=== PATIENT | male | born 1970 | race Caucasian/White ===

== ENCOUNTER 2019-02-20 06:00 | Emergency (ER) | payer OTHER ==
--- OUTSIDE RECORDS SUMMARY | 2019-02-20 06:11 | XMS REPORT | Continuity of Care Document ---
:1970 External Reference #:[id number] Author Name José Miguel Emmanuel M.D. (transmitted by agent of provider Mariely Cruz) Address [address] [place] [id number] Care Team Providers Name Role Phone [facility] - Care Team Information Beauty Culture Teacher Mental Health Carolin Ho M.D. - Family Medicine Care Team Information Beauty Culture Teacher [phone] Problems Active Problems Provider Date Insomnia Nathan Goodman M.D.,FACP Onset: 03/24/2017 Opioid abuse Nathan Goodman M.D.,FACP Onset: 03/24/2017 Mixed hyperlipidemia Nathan Goodman M.D.,FACP Onset: 03/24/2017 Moderate cigarette smoker (10- Nahtan Goodman M.D.,FACP Onset: 2017 cigs/day) Anxiety disorder Nathan Goodman M.D.,FACP Onset: 10/12/2017 Social History Type Date Description Comments Sex Unknown Tobacco Use Start: Unknown current cigarette smoker Smoking Status Reviewed: 02/05/19 current cigarette smoker ETOH Use 03/30/2018 Denies alcohol use Tobacco Use Start: Unknown Patient is a current 1/2-3/4 ppd X 30 smoker, smokes every day years Recreational Drug Use Denies Drug Use Allergies, Adverse Reactions, Alerts Description No Known Drug Allergies Medications Active Medications SIG Qnty Indications Ordering Provider Date Trazodone HCL 1-2 tab every 60tabs Nathan Rubi 06/09/2018 50mg night at bedtime Paco Goodman,FACP Tablets as needed Naproxen 1 by mouth twice 60tabs Nathan Rubi 11/21/2017 500mg Tablets a day as needed Paco Goodman,FACP Buprenorphine place one tablet 56tabs Nathan Rubi 03/24/2017 HCL-Naloxone HCL under the tongue Paco Goodman,FACP 8-2mg twice a day; Tablets Sub maximum daily dose = 2 Sudafed Congestion 1 by mouth twice Unknown 30mg a day Tablets Clonazepam Take One Tablet Unknown 0.5mg Tablets By Mouth Twice A Day Max 2/Day Medications Administered in Office Medication SIG Qnty Indications Ordering Provider Date Records Fee Katie Ocampo M.D. 11/09/2018 Injection Records Fee José Miguel Emmanuel M.D. 09/25/2018 Injection Triamcinolone (Kenalog) SUJATA Ramirez 09/04/2018 Injection Depomedrol 40MG José Miguel Emmanuel M.D. 01/23/2018 Injection Immunizations CPT Code Status Date Vaccine Reaction Lot # [id number] Given 02/20/2018 Influenza Virus Vaccine, no immediate reaction [id number] Quadrivalent, Split, noted Preservative Free 42554 Given 06/24/2015 Pneumonia Vaccine [id number] Vital Signs Date Vital Result Comment 02/05/2019 8:48am Height 73 inches 6'1" Weight 165.00 lb Heart Rate 63 /min BP Systolic 110 mmHg BP Diastolic 64 mmHg Respiratory Rate 16 /min Body Temperature 96.9 F Pain Level 3 BMI (Body Mass Index) 21.8 kg/m2 01/22/2019 9:31am Height 72 inches 6'0" Weight 165.00 lb Heart Rate 70 /min BP Systolic 100 mmHg BP Diastolic 68 mmHg Respiratory Rate 18 /min Body Temperature 96.8 F Pain Level 4 BMI (Body Mass Index) 22.4 kg/m2 Results Description No Information Available Procedures Date Code Description Status 09/04/2018 Inject/Drain Joint/Bursa Major W/O US Completed 09/04/2018 Inject/Drain Joint/Bursa Major W/O US Completed Medical Devices Description No Information Available Encounters Type Date Location Provider Dx Diagnosis Office Visit 12/25/2018 [facility] José Miguel Emmanuel M.D. M25.561 Pain in right 1:45p at [place] knee M23.8x1 Other internal derangements of right knee M17.11 Unilateral primary osteoarthritis, right knee Assessments Date Code Description Provider 01/22/2019 M16.11 Unilateral primary osteoarthritis, right hip José Miguel Emmanuel M.D. 01/22/2019 M17.11 Unilateral primary osteoarthritis, right knee José Miguel Emmanuel M.D. 12/25/2018 M25.561 Pain in right knee José Miguel Emmanuel M.D. 12/25/2018 M23.8x1 Other internal derangements of right knee José Miguel Emmanuel M.D. 12/25/2018 M17.11 Unilateral primary osteoarthritis, right knee José Miguel Emmanuel M.D. 09/04/2018 M17.11 Unilateral primary osteoarthritis, right knee Magdalena Arreola RPA-Olena 09/04/2018 M17.11 Unilateral primary osteoarthritis, right knee José Miguel Emmanuel M.D. 09/04/2018 M25.461 Effusion, right knee José Miguel Emmanuel M.D. Plan of Treatment No Information Available Functional Status Description No Information Available Mental Status Description No Information Available Referrals Description No Information Available
--- OUTSIDE RECORDS SUMMARY | 2019-02-20 06:11 | XMS REPORT | Continuity of Care Document ---
:1970 External Reference #:[id number] Author Name José Miguel Emmanuel M.D. (transmitted by agent of provider Farnaz Cunha) Address [address] [place] [id number] Care Team Providers Name Role Phone [facility] - Care Team Information Lab Support Service Tech [phone] Mental Health Carolin Ho M.D. - Family Medicine Care Team Information Lab Support Service Tech Problems Active Problems Provider Date Insomnia Nathan Goodman M.D.,FACP Onset: 03/24/2017 Opioid abuse Nathan Goodman M.D.,FACP Onset: 03/24/2017 Mixed hyperlipidemia Nathan Goodman M.D.,FACP Onset: 03/24/2017 Moderate cigarette smoker (10-19 Nathan Goodman M.D.,FACP Onset: 2017 cigs/day) Anxiety disorder Nathan Goodman M.D.,FACP Onset: 10/12/2017 Social History Type Date Description Comments Sex Unknown Tobacco Use Start: Unknown current cigarette smoker Smoking Status Reviewed: 12/25/18 current cigarette smoker ETOH Use 03/30/2018 Denies [...] Code Status Date Vaccine Reaction Lot # [id number] Given 02/20/2018 Influenza Virus Vaccine, no immediate reaction [id number] Quadrivalent, Split, noted Preservative Free 33669 Given 06/24/2015 Pneumonia Vaccine [id number] Vital Signs Date Vital Result Comment 12/25/2018 1:45pm Height 72 inches 6'0" Weight 160.00 lb Heart Rate 64 /min BP Systolic 120 mmHg BP Diastolic 66 mmHg Respiratory Rate 14 /min Pain Level 7 BMI (Body Mass Index) 21.7 kg/m2 09/04/2018 2:49pm Height 72 inches 6'0" Weight 168.25 lb Heart Rate 74 /min BP Systolic 120 mmHg BP Diastolic 72 mmHg Body Temperature 97.9 F Pain Level 3 BMI (Body Mass Index) 22.8 kg/m2 Results Description No Information Available Procedures Date Code Description Status 09/04/201846439 Inject/Drain Joint/Bursa Major W/O US Completed 09/04/2018 Inject/Drain Joint/Bursa Major W/O US Completed Medical Devices Description No Information Available Encounters Description No Information Available Assessments Date Code Description Provider 12/25/2018 S83.231D Complex tear of medial meniscus, current José Miguel Emmanuel M.D. injury, right knee, subsequent encounter 12/25/2018 M17.11 Unilateral primary osteoarthritis, right knee José Miguel Emmanuel M.D. 09/04/2018 M17.11 Unilateral primary osteoarthritis, right knee Magdalena Arreola , IMELDA-C 09/04/2018 M17.11 Unilateral primary osteoarthritis, right knee José Miguel Emmanuel M.D. 09/04/2018 M25.461 Effusion, right knee José Miguel Emmanuel M.D. Plan of Treatment 12/25/2018 - José Miguel Emmanuel M.D.S83.231D Complex tear of medial meniscus, current injury, right knee, subsequent encounterNew Xrays:MRI Knee Right W/O, Ordered: 12/25/18Follow up:Follow up: O/V after MRI right kneeM17.11 Unilateral primary osteoarthritis, right knee Functional Status Description No Information Available Mental Status Description No Information Available Referrals Description No Information Available
--- NOTE | 2019-02-20 06:39 | ED ---
Laceration/Wound HPI - HPI Summary HPI Summary: 48 y/o right handed male presents to the ED today with 2 lacerations to his left forearm. A 3.5 cm laceration to his left lateral forearm and a superficial 3.5cm laceration to the proximal posterior left forearm. He states that this occurred at 2230 on 02/19/19 when he tripped in his garage and put his hand through a glass window pane in his garage. Pt states there was minimal bleeding and thus decided not to come into the ED until this morning. Pt reports minimal pain at this time and has not taken anything for pain before presenting to the ED. Pt has full ROM and is neurovascularly intact. Hemostasis is achieved at this time. Pt states his last Tdap was within 5 years. - History of Current Complaint Stated Complaint: ARM LAC PER PT Time Seen by Provider: 02/20/19 06:35 Hx Obtained From: Patient Mechanism of Injury: Sharp/Blunt Trauma Onset/Duration: Sudden Onset Aggravating: Movement Alleviating: Nothing Timing: Constant Onset Severity: Mild Current Severity: None Pain Intensity: 7 Pain Scale Used: 0-10 Numeric Associated Signs & Symptoms: Negative Related Hx: Dominant Hand (Right) - Allergy/Home Medications Allergies/Adverse Reactions: Allergies Allergy/AdvReac Type Severity Reaction Status Date / Time No Known Allergies Allergy Verified 02/20/19 06:03 PMH/Surg Hx/FS Hx/Imm Hx Endocrine/Hematology History: Denies: Hx Anticoagulant Therapy, Hx Diabetes Cardiovascular History: Denies: Hx Hypertension, Hx Pacemaker/ICD History: Denies: Hx Renal Disease Sensory History: Denies: Hx Hearing Aid Psychiatric History: Denies: Hx Panic Disorder, Hx Substance Abuse - Surgical History Surgery Procedure, Year, and Place: Appendectomy as a 4-yr old;. R knee surgery 2010; - Immunization History Date of Tetanus Vaccine: Within 5 years Infectious Disease History: No Infectious Disease History: Reports: Hx Hepatitis - pt states he MAY have hepatitis hx, Hx Shingles Denies: Traveled Outside the [place] in Last 30 Days - Social History Lives: With Family - Mother Alcohol Use: None Substance Use Type: Reports: None Hx Tobacco Use: Yes Smoking Status (MU): Current Every Day Smoker Review of Systems Constitutional: Negative Cardiovascular: Negative Respiratory: Negative Gastrointestinal: Negative Musculoskeletal: Negative Positive: Other - 2 lacteration to the left forearm Neurological: Negative All Other Systems Reviewed And Are Negative: Yes Physical Exam Triage Information Reviewed: Yes Vital Signs On Initial Exam: Initial Vitals Temp Pulse Resp BP Pulse Ox 98.4 F 67 15 120/75 97 02/20/19 06:01 02/20/19 06:01 02/20/19 06:01 02/20/19 06:01 02/20/19 06:01 Vital Signs Reviewed: Yes Appearance: Positive: Well-Appearing, Well-Nourished Skin: Positive: Warm, Skin Color Reflects Adequate Perfusion Head/Face: Positive: Normal Head/Face Inspection Eyes: Positive: Normal, EOMI, CARA, Conjunctiva Clear ENT: Positive: Hearing grossly normal Respiratory/Lung Sounds: Positive: Breath Sounds Present Cardiovascular: Positive: Normal Musculoskeletal: Positive: Normal, Strength/ROM Intact Neurological: Positive: Sensory/Motor Intact Psychiatric: Positive: Normal, Affect/Mood Appropriate AVPU Assessment: Alert Procedures - Sedation Patient Received Moderate/Deep Sedation with Procedure: No Diagnostics - Vital Signs Vital Signs Temp Pulse Resp BP Pulse Ox 02/20/19 06:01 98.4 F 67 15 120/75 97 - Laboratory Lab Statement: Any lab studies that have been ordered have been reviewed, and results considered in the medical decision making process. Laceration Repair Course/Dx - Course Course Of Treatment: Pt was evaluated for 2 lacerations to the left forearm. A 3.5cm lacteration was anesthetised with 5ml of 1% lidocain w/o epi. Wounds were irrigated with 500CC of normal saline. 6 simple interuppted surutres were used to approximate the laceration of the lateral mid forearm using 4-0 nylon. Dermabond and steri strips were used for approximation of the superficial 3.5 cm laceration to the proximal posterior left forearm. Pt tetnus is up to date. Pt tolerated the procedure well. Hemostasis acheived. Pt discharged home with dressing clean and inplace. Pt will return to this ED or his PCP for suture removal in 8-10 days. - Differential Dx Differental Diagnoses: Laceration - Clinical Impression Provider Diagnoses: Laceration of left forearm Discharge ED - Sign-Out/Discharge Documenting (check all that apply): Patient Departure - Discharge Plan Condition: Stable Disposition: HOME Patient Education Materials: Care For Your Stitches (ED), Laceration (ED) Referrals: Storm,Shawnti R, CLOTH BOOKER [Primary Care Provider] - Additional Instructions: Return to your PCP or this ED in 8-10 days for removal of your sutures. Keep your dressing dry and intact for 24 hours, then you may remove and clean it with soap and warm water. Gently run the water over the wound, do not scrub. Once clean gently pat wound dry and redress. Your steri strips and dermabond glue will fall off when they are ready to. Resume your normal activity as tolerated. For any worsening or changing symptoms return to this ED immediately. - Billing Disposition and Condition Condition: STABLE Disposition: Home - Attestation Statements Provider Attestation: I was available for consultation for this patient. I did not evaluate the patient or participate in any medical decision making or disposition decisions unless I am specifically named in the chart as having consulted on the patient. If I have consulted on the patient, please see my own ED note on the patient encounter. Alana Godwin MD
[2019-02-20 07:49] VITALS: BP 103/60
== END 2019-02-20 07:50 | disposition home or self-care (01) ==
LOC: ED 06:00
DX: S51.812A Laceration without foreign body of left forearm, initial encounter (principal); W01.198A Fall on same level from slipping, tripping and stumbling with subsequent striking against other object, initial encounter; Y92.015 Private garage of single-family (private) house as the place of occurrence of the external cause; F17.200 Nicotine dependence, unspecified, uncomplicated
CPT/HCPCS: 12002; 99282

== ENCOUNTER 2019-06-20 03:50 | Emergency (ER) | payer OTHER ==
--- NOTE | 2019-06-20 04:12 | ED ---
Throat Pain/Nasal Congestion - HPI Summary HPI Summary: 49 year old M presenting to [facility] with a chief complaint of left sided dental pain since 3 nights ago. He also reports vomiting, a headache, and chills. The patient rates the pain 10/10 in severity. Symptoms aggravated by nothing. Symptoms alleviated by cold water. He denies any fever. He states that he takes Naproxen for his pain. Patient reports that he was told he needed to have all of his teeth pulled prior to knee surgery by his surgeon who he saw in the fall. He states that he has had teeth pulled previously. He admits to an active history of smoking and marijuana use. Medication list reviewed. Allergy list reviewed. - History of Current Complaint Chief Complaint: EDDentalPain Time Seen by Provider: 06/20/19 03:57 Hx Obtained From: Patient Onset/Duration: Still Present Severity: Severe Cough: None Related History: Smoking - Allergies/Home Medications Allergies/Adverse Reactions: Allergies Allergy/AdvReac Type Severity Reaction Status Date / Time No Known Allergies Allergy Verified 06/20/19 04:04 Home Medications: Home Medications Clindamycin Cap(NF) [Clindamycin Cap 300 mg Cap(NF)] 300 mg PO Q6H #40 cap 06/19 [Rx] Suboxone 8-2 mg SL TAB* 1 tab PO BID 06/20/19 [History Confirmed 06/20/19] clonazePAM 0.5 mg PO BID 06/20/19 [History Confirmed 06/20/19] PMH/Surg Hx/FS Hx/Imm Hx Endocrine/Hematology History: Denies: Hx Anticoagulant Therapy, Hx Diabetes Cardiovascular History: Denies: Hx Hypertension, Hx Pacemaker/ICD History: Denies: Hx Renal Disease Sensory History: Denies: Hx Hearing Aid Psychiatric History: Denies: Hx Panic Disorder, Hx Substance Abuse - Surgical History Surgery Procedure, Year, and Place: Appendectomy as a 4-yr old;. R knee surgery 2010; - Immunization History Date of Tetanus Vaccine: Within 5 years Infectious Disease History: Yes Infectious Disease History: Reports: Hx Hepatitis - pt states he MAY have hepatitis hx, Hx Shingles Denies: Traveled Outside the [place] in Last 30 Days - Family History Known Family History: Positive: Unknown - Patient is adopted. - Social History Alcohol Use: None Hx Substance Use: Yes Substance Use Type: Reports: Marijuana Hx Tobacco Use: Yes Smoking Status (MU): Current Every Day Smoker - Additional Comments History Additional Comments: Tooth removal, current smoker Review of Systems - ROS Summary Review of Systems Summary: Home Medications Medication Instructions Recorded Confirmed Type Suboxone 8-2 mg SL TAB* 1 tab PO BID 06/20/19 06/20/19 History clonazePAM 0.5 mg PO BID 06/20/19 06/20/19 History Positive: Chills. Negative: Fever Positive: Dental Pain - Left sided Positive: Vomiting Positive: Headache All Other Systems Reviewed And Are Negative: Yes Physical Exam - Summary Physical Exam Summary: General: Well-developed, Well-nourished male. No acute distress. Appears to be in mild discomfort. HEENT: Normocephalic, Atraumatic. Eyes: Conjuctiva normal, PERRL. Oropharynx: Clear, mucous membranes moist, (-) exudates. Rotted dentition, multiple teeth missing or partially missing, no obvious erythema or abscess, no fluctuance. Neck: Soft, FROM, (-) lymphadenopathy, (-) thyromegaly, (-) JVD. Cardiovascular: Normal sinus rhythm, (-) murmur. Lungs: Clear to auscultation bilaterally (-) wheezes, (-) rales, (-) rhonchi. Abdomen: Soft, non-tender, non-distended, (-) organomegaly, normal bowel sounds. Back: (-) CVA tenderness Extremities: No edema. Skin: Warm, dry, (-) rash. Neuro: Alert and oriented x3, moves all extremities equally. No ataxia. No gait disturbance. No sensory deficit. Normal strength, normal sensation. Psychiatric: Mood normal, affect normal. Triage Information Reviewed: Yes Vital Signs On Initial Exam: Initial Vitals Temp Pulse Resp BP Pulse Ox 96.9 F 80 20 166/105 100 06/20/19 03:53 06/20/19 03:53 06/20/19 03:53 06/20/19 03:53 06/20/19 03:53 Vital Signs Reviewed: Yes Procedures - Sedation Patient Received Moderate/Deep Sedation with Procedure: No Diagnostics - Vital Signs Vital Signs Temp Pulse Resp BP Pulse Ox 06/20/19 03:53 96.9 F 80 20 166/105 100 - Laboratory Lab Statement: Any lab studies that have been ordered have been reviewed, and results considered in the medical decision making process. EENT Course/Dx - Course Course Of Treatment: 49-year-old male presents from home with left sided dental pain. Patient states for the last 3 nights he has been unable to sleep. Has severe pain in his left lower mid jaw. States he has very poor dentition. Has been recommended to have all his teeth pulled by orthopedics so that he can have his meniscus repair to his right knee. Patient states he has not followed up with a dentist in years. Is concerned about having his teeth pulled while awake. He has been taking naproxen for pain without relief. Keeps putting ice cold water on the area to try to numb it. He states he's fevers. Has had some nausea and vomiting. On physical exam patient appears to be in mild discomfort. He does have extremely poor dentition with multiple missing teeth or urgency of teeth. There is no obvious erythema or abscess noted. Neck is without lymphadenopathy. Afebrile. Patient started on clindamycin. Given Toradol IM. Ice pack. Advised follow-up with dentist as soon as possible. Follow up sooner for any worsening symptoms. The patient was given Clindamycin and Toradol in the ED. - Diagnoses Provider Diagnoses: Pain, dental Discharge ED - Sign-Out/Discharge Documenting (check all that apply): Patient Departure - discharge - Discharge Plan Condition: Stable Disposition: HOME Prescriptions: Clindamycin Cap(NF) [Clindamycin Cap 300 mg Cap(NF)] 300 mg PO Q6H #40 cap Patient Education Materials: Toothache (ED) Referrals: Herbert Douglas, CLINICAL LABORATORY SCIENCE PROFESSOR [Primary Care Provider] - Additional Instructions: Please follow up with your dentist within three days. Please return to ED for any new or worsening symptoms. - Billing Disposition and Condition Condition: STABLE Disposition: Home - Attestation Statements Document Initiated by Scribe: Yes Documenting Scribe: Ani Hooker Provider For Whom Raudel is Documenting (Include Credential): Lindsey Tristan MD Scribe Attestation: Kendal Tucker Natalie George, scribed for Lindsey Tristan MD on 06/20/19 at 0500. Scribe Documentation Reviewed: Yes Provider Attestation: The documentation as recorded by the Kendal ahuja Natalie George accurately reflects the service I personally performed and the decisions made by me, Lindsey Tristan MD Status of Scribe Document: Viewed
[2019-06-20] MEDS ORDERED: Clindamycin CAP* 150 MG PO ONE (04:28)
[2019-06-20] MEDS ORDERED: Ketorolac INJ* 30 MG/ML 1 ML VIAL IM ONE (04:28)
[2019-06-20 04:54] VITALS: BP 140/89
== END 2019-06-20 04:45 | disposition home or self-care (01) ==
LOC: ED 03:50
DX: K08.89 Other specified disorders of teeth and supporting structures (principal); F17.210 Nicotine dependence, cigarettes, uncomplicated; R11.10 Vomiting, unspecified; R51 Headache
CPT/HCPCS: 96374; 99284; A9270-GY; J1885